=== PATIENT | male | born 1955 | race Hispanic/Latino ===

== ENCOUNTER → 2017-04-17 | Outpatient (CLI) | payer OTHER, MEDICARE ==
[2017-04-17 09:39] LABS: BASOPHILS % (AUTO) 0.5 % (0.0-5.0); EOSINOPHILS % (AUTO) 2.9 % (0.0-8.0); HEMATOCRIT 44.1 % (42-54); LYMPHOCYTES % (AUTO) 34.6 % (21.0-51.0); MEAN CORPUSCULAR HEMOGLOBIN 28.5 pg (27.0-33.0); MEAN CORPUSCULAR VOLUME 83.8 fL (79-99); MONOCYTES % (AUTO) 10.5 % (3.0-13.0); NEUTROPHILS % (AUTO) 51.5 % (40.0-77.0); PLATELET COUNT (AUTO) 115 K/uL (130-400); RED BLOOD CELL COUNT(AUTO) 5.26 MIL/uL (4.50-6.20); RED CELL DISTRIBUTION WIDTH 12.5 % (11.0-15.5); WHITE BLOOD COUNT (AUTO) 6.6 K/uL (4.8-10.8)
[2017-04-17 09:47] LABS: HEMOGLOBIN A1C 10.9 % (4.0-6.0)
[2017-04-17 10:12] LABS: ALBUMIN 3.4 g/dL (3.5-5.0); BILIRUBIN,DIRECT 0.1 mg/dL (0.0-0.3); BILIRUBIN,TOTAL 0.6 mg/dL (0.2-1.0); THYROID STIMULATING HORMONE 1.48 uIU/mL (0.36-3.74)
[2017-04-17 10:40] LABS: ERYTHROCYTE SEDIMENTATION RATE 16 MM/HR (0-15)
== END | disposition home or self-care (01) ==
LOC: LAB 08:42
PROVIDERS: ATTEND Internal Medicine
DX: E11.65 Type 2 diabetes mellitus with hyperglycemia (principal); E11.51 Type 2 diabetes mellitus with diabetic peripheral angiopathy without gangrene; M15.9 Polyosteoarthritis, unspecified
CPT/HCPCS: 36415; 80061; 80076; 82043; 82270; 82306; 82310; 82570; 83036; 83970; 84443; 85025; 85651

== ENCOUNTER → 2017-06-20 | Outpatient (CLI) | payer OTHER, MEDICARE | END | disposition home or self-care (01) | LOC: LAB 08:55 | PROVIDERS: ATTEND Internal Medicine | DX: E11.9 Type 2 diabetes mellitus without complications (principal) | CPT/HCPCS: 83036 ==

== ENCOUNTER → 2017-07-17 | Outpatient (CLI) | payer OTHER, MEDICARE ==
[2017-07-17 09:33] LABS: BASOPHILS % (AUTO) 0.5 % (0.0-5.0); HEMATOCRIT 42.2 % (42-54); LYMPHOCYTES % (AUTO) 29.9 % (21.0-51.0); MEAN CORPUSCULAR HEMOGLOBIN 28.6 pg (27.0-33.0); MEAN CORPUSCULAR HGB CONC 34.2 g/dL (32.0-36.0); MEAN CORPUSCULAR VOLUME 83.6 fL (79-99); MONOCYTES % (AUTO) 11.4 % (3.0-13.0); NEUTROPHILS % (AUTO) 55.2 % (40.0-77.0); PLATELET COUNT (AUTO) 126 K/uL (130-400); RED BLOOD CELL COUNT(AUTO) 5.05 MIL/uL (4.50-6.20)
[2017-07-17 10:01] LABS: ALBUMIN 3.5 g/dL (3.5-5.0); BILIRUBIN,TOTAL 0.7 mg/dL (0.2-1.0); POTASSIUM 4.3 mmol/L (3.5-5.1); THYROID STIMULATING HORMONE 0.95 uIU/mL (0.36-3.74); TOTAL PROTEIN, SERUM 7.3 g/dL (6.0-8.3); URIC ACID 5.5 mg/dL (2.6-7.2)
[2017-07-17 10:05] LABS: HEMOGLOBIN A1C 9.7 % (4.0-6.0)
== END | disposition home or self-care (01) ==
LOC: LAB 08:59
PROVIDERS: ATTEND Internal Medicine
DX: Z12.11 Encounter for screening for malignant neoplasm of colon (principal); I10 Essential (primary) hypertension; E11.9 Type 2 diabetes mellitus without complications; E78.5 Hyperlipidemia, unspecified; E03.9 Hypothyroidism, unspecified
CPT/HCPCS: 36415; 80053; 80061; 82043; 82570; 83036; 83970; 84443; 84550; 85025

== ENCOUNTER → 2018-08-11 | Outpatient (CLI) | payer OTHER, MEDICARE ==
[2018-08-11 10:11] LABS: BASOPHILS % (AUTO) 0.6 % (0.0-5.0); EOSINOPHILS % (AUTO) 3.8 % (0.0-8.0); HEMATOCRIT 39.9 % (42-54); LYMPHOCYTES % (AUTO) 25.6 % (21.0-51.0); MEAN CORPUSCULAR HEMOGLOBIN 29.3 pg (27.0-33.0); MEAN CORPUSCULAR HGB CONC 33.9 g/dL (32.0-36.0); MEAN CORPUSCULAR VOLUME 86.5 fL (79-99); MONOCYTES % (AUTO) 10.9 % (3.0-13.0); NEUTROPHILS % (AUTO) 59.1 % (40.0-77.0); PLATELET COUNT (AUTO) 119 K/uL (130-400); RED BLOOD CELL COUNT(AUTO) 4.61 MIL/uL (4.50-6.20); RED CELL DISTRIBUTION WIDTH 12.9 % (11.0-15.5); WHITE BLOOD COUNT (AUTO) 7.7 K/uL (4.8-10.8)
[2018-08-11 10:26] LABS: HEMOGLOBIN A1C 9.1 % (4.0-6.0)
[2018-08-11 10:37] LABS: ALBUMIN 3.4 g/dL (3.5-5.0); BILIRUBIN,DIRECT 0.1 mg/dL (0.0-0.3); BILIRUBIN,TOTAL 0.5 mg/dL (0.2-1.0); CREATININE 0.8 mg/dL (0.5-1.5); POTASSIUM 4.5 mmol/L (3.5-5.1); THYROID STIMULATING HORMONE 0.91 uIU/mL (0.36-3.74); TOTAL PROTEIN, SERUM 6.7 g/dL (6.0-8.3); URIC ACID 4.5 mg/dL (2.6-7.2)
== END | disposition home or self-care (01) ==
LOC: LAB 09:12
PROVIDERS: ATTEND Internal Medicine
DX: E78.5 Hyperlipidemia, unspecified (principal); E11.40 Type 2 diabetes mellitus with diabetic neuropathy, unspecified; I10 Essential (primary) hypertension; N40.1 Benign prostatic hyperplasia with lower urinary tract symptoms; E11.69 Type 2 diabetes mellitus with other specified complication; D69.6 Thrombocytopenia, unspecified; E11.29 Type 2 diabetes mellitus with other diabetic kidney complication; R53.83 Other fatigue
CPT/HCPCS: 36415; 80053; 80061; 80076; 82043; 82570; 83036; 83970; 84153; 84443; 84550; 85025

== ENCOUNTER → 2018-09-24 | Outpatient (CLI) | payer OTHER, MEDICARE ==
[2018-09-24 09:24] LABS: BASOPHILS % (AUTO) 0.5 % (0.0-5.0); EOSINOPHILS % (AUTO) 3.2 % (0.0-8.0); HEMATOCRIT 38.6 % (42-54); LYMPHOCYTES % (AUTO) 33.2 % (21.0-51.0); MEAN CORPUSCULAR HEMOGLOBIN 29.3 pg (27.0-33.0); MEAN CORPUSCULAR HGB CONC 34.1 g/dL (32.0-36.0); MEAN CORPUSCULAR VOLUME 85.9 fL (79-99); MONOCYTES % (AUTO) 9.5 % (3.0-13.0); NEUTROPHILS % (AUTO) 53.6 % (40.0-77.0); PLATELET COUNT (AUTO) 97 K/uL (130-400); RED CELL DISTRIBUTION WIDTH 12.8 % (11.0-15.5); WHITE BLOOD COUNT (AUTO) 7.6 K/uL (4.8-10.8)
[2018-09-24 09:33] LABS: HEMOGLOBIN A1C 9.2 % (4.0-6.0)
[2018-09-24 09:47] LABS: ALBUMIN 3.4 g/dL (3.5-5.0); BILIRUBIN,TOTAL 0.5 mg/dL (0.2-1.0); CREATININE 1.1 mg/dL (0.5-1.5); POTASSIUM 3.9 mmol/L (3.5-5.1); THYROID STIMULATING HORMONE 1.25 uIU/mL (0.36-3.74); TOTAL PROTEIN, SERUM 6.5 g/dL (6.0-8.3); URIC ACID 5.2 mg/dL (2.6-7.2)
== END | disposition home or self-care (01) ==
LOC: LAB 08:45
PROVIDERS: ATTEND Internal Medicine
DX: Z12.11 Encounter for screening for malignant neoplasm of colon (principal); N40.0 Benign prostatic hyperplasia without lower urinary tract symptoms; I12.9 Hypertensive chronic kidney disease with stage 1 through stage 4 chronic kidney disease, or unspecified chronic kidney disease; E11.40 Type 2 diabetes mellitus with diabetic neuropathy, unspecified; E11.65 Type 2 diabetes mellitus with hyperglycemia; N18.1 Chronic kidney disease, stage 1; E11.22 Type 2 diabetes mellitus with diabetic chronic kidney disease; E78.5 Hyperlipidemia, unspecified
CPT/HCPCS: 36415; 80053; 80061; 82043; 83036; 83970; 84153; 84443; 84550; 85025

== ENCOUNTER → 2022-02-12 | Outpatient (CLI) | payer OTHER, MEDICARE ==
[2022-02-12 12:47] LABS: CREATININE 1.2 mg/dL (0.5-1.5); POTASSIUM 5.4 mmol/L (3.5-5.1)
== END | disposition home or self-care (01) ==
LOC: LAB 12:01
PROVIDERS: ATTEND Internal Medicine Cardiovascular Disease
DX: R60.9 Edema, unspecified (principal)
CPT/HCPCS: 36415; 80048; 83880

== ENCOUNTER → 2022-03-08 | Outpatient (CLI) | payer OTHER, MEDICARE | END | disposition home or self-care (01) | LOC: SHCH 10:04 | PROVIDERS: ATTEND Internal Medicine Cardiovascular Disease | DX: I35.8 Other nonrheumatic aortic valve disorders (principal); I51.7 Cardiomegaly; R60.9 Edema, unspecified; E11.9 Type 2 diabetes mellitus without complications; E78.5 Hyperlipidemia, unspecified | CPT/HCPCS: 93306 ==